=== PATIENT | male | born 1955 | race Caucasian/White ===

== ENCOUNTER 2017-03-14 14:14 | Emergency (ER) | payer BC ==
[2017-03-14] MEDS ORDERED: diphenhydrAMINE 50 MG/ML 1 ML VIAL IM STA (14:59)
[2017-03-14] MEDS ORDERED: methylPREDNISolone SOD SUCCI 125 MG/2 ML VIAL IM ONE (14:59)
[2017-03-14] MEDS ORDERED: FAMOTIDINE 20 MG TAB PO STA (15:00)
--- NOTE | 2017-03-14 15:01 | ED ---
Skin/Abscess/FB HPI - General Chief complaint: Skin/Abscess/Foreign Body Stated complaint: insect bites/bee sting Time Seen by Provider: 03/14/17 14:31 Source: patient, family, RN notes reviewed, old records reviewed Mode of arrival: ambulatory Limitations: no limitations - History of Present Illness Initial comments: Is a pleasant 61-year-old male presenting to the emergency Department chief complaint of left eye swelling and pain. Patient reports she was stung on his left eyebrow approximately 1 hour prior to arrival. He did take 50 mg Benadryl Benadryl at that time. Patient states that he has no eye pain. No pain with extra ocular eye movements. Patient states that he has no previous history of ALLERGIC reactions to bees. Patient denies any recent fever, chills, shortness of breath, chest pain, back pain, abdominal pain, nausea vomiting, numbness or tingling, dysuria or hematuria, constipation or diarrhea, headaches or visual changes, or any other current symptoms - Related Data Previous Rx's Medication Instructions Recorded Famotidine [Pepcid] 20 mg PO BID #8 tablet 03/14/17 diphenhydrAMINE [Benadryl] 25 mg PO QID PRN #20 capsule 03/14/17 predniSONE 50 mg PO DAILY #4 tablet 03/14/17 Allergies Allergy/AdvReac Type Severity Reaction Status Date / Time No Known Allergies Allergy Verified 03/14/17 15:13 Review of Systems ROS Statement: Those systems with pertinent positive or pertinent negative responses have been documented in the HPI. ROS Other: All systems not noted in ROS Statement are negative. Past Medical History Past Medical History: Hypertension History of Any Multi-Drug Resistant Organisms: None Reported Past Surgical History: Tonsillectomy Past Psychological History: No Psychological Hx Reported Smoking Status: Never smoker Past Alcohol Use History: None Reported Past Drug Use History: None Reported General Exam - General Exam Comments Initial Comments: Well-appearing 7-year-old male. No acute distress. Limitations: no limitations General appearance: alert, in no apparent distress Head exam: Present: atraumatic, normocephalic, normal inspection Eye exam: Present: PERRL, EOMI. Absent: normal appearance (left eye upper lid swelling. No stinger evidence in eyebrow. ), scleral icterus, conjunctival injection, periorbital swelling ENT exam: Present: normal exam, mucous membranes moist Neck exam: Present: normal inspection. Absent: tenderness, meningismus, lymphadenopathy Respiratory exam: Present: normal lung sounds bilaterally. Absent: respiratory distress, wheezes, rales, rhonchi, stridor Cardiovascular Exam: Present: regular rate, normal rhythm, normal heart sounds. Absent: systolic murmur, diastolic murmur, rubs, gallop, clicks GI/Abdominal exam: Present: soft, normal bowel sounds. Absent: distended, tenderness, guarding, rebound, rigid Extremities exam: Present: normal inspection, full ROM, normal capillary refill. Absent: tenderness, pedal edema, joint swelling, calf tenderness Back exam: Present: normal inspection Neurological exam: Present: alert, oriented X3, CN II-XII intact Psychiatric exam: Present: normal affect, normal mood Skin exam: Present: warm, dry, intact, normal color. Absent: rash Course Vital Signs 03/14/17 14:28 Temperature 98.7 F Pulse Rate 111 H Respiratory 20 Rate Blood Pressure 166/90 O2 Sat by Pulse 97 Oximetry Medical Decision Making - Medical Decision Making This is a 61 year old male with CC of left eyelid swelling after being stung by a bee 2 hours ago on left eyebrow. Patient assessment and edema over the left eyebrow and eyelid. Patient is given an ice pack. Patient be given IM slightly medical, Benadryl. Discussed leads apply ice over it is much as possible. Discussed that he can take the steroids for the next few days as well as Benadryl every 4-6 hours. Discussed returning for any worsening signs or symptoms. Patient agrees to treatment plan will comply. Return parameters were discussed. Disposition Clinical Impression: Bee sting, Eye swelling, left Disposition: HOME SELF-CARE Condition: Good Instructions: Insect Bite or Sting (ED) Additional Instructions: Patient advised to follow-up with primary care provider. Apply ice over the eye is much as possible. Take the steroids for the next few days as directed as well as continue to take Benadryl every 4-6 hours. Return to emergency department if any alarming signs or symptoms occur. Prescriptions: diphenhydrAMINE [Benadryl] 25 mg PO QID PRN #20 capsule PRN Reason: Itching Famotidine [Pepcid] 20 mg PO BID #8 tablet predniSONE 50 mg PO DAILY #4 tablet Referrals: Stephen Perez MD [Primary Care Provider] - 1-2 days Time of Disposition: 15:01
[2017-03-14 15:24] VITALS: BP 137/92; PULSE 96; RESP 18; TEMP 97.9
== END 2017-03-14 15:24 | disposition home or self-care (01) ==
LOC: EC 14:14
DX: T63.441A Toxic effect of venom of bees, accidental (unintentional), initial encounter (principal)
CPT/HCPCS: 99283; 96372 ×2; J1200; J2930

== ENCOUNTER → 2023-01-16 | Outpatient (CLI) | payer MEDICARE ==
--- NOTE | 2023-01-16 15:22 | P.SLEEP ---
History of Present Illness DATE: 01/16/2023 CONSULTATION/NEW PATIENT EVALUATION HISTORY OF PRESENT ILLNESS/SLEEP-WAKE EVALUATION: 67-year-old gentleman had been evaluated in the sleep center for possible obstructive sleep apnea hypopnea syndrome. SLEEP SCHEDULE: Usually sleep schedule from 11 PM to 8 AM 7 days a week. FALLING ASLEEP: Usually no problems with falling asleep, no TV in bedroom. DURING SLEEP: Patient sleeps on the back and side position. According to his he snores and has witnessed episodes of stop breathing during the sleep. Patient has multiple awakenings from sleep up to 4 times with nocturia. No history of hypnogogical hallucinations, sleep paralysis, or cataplexy. DURING THE DAY/WAKE STATE: In the morning patient wake up tired, has difficulties to pay attention, falling asleep during the day. Patient has problems with memory and concentration. [place] sleepiness scale is 14, which indicates sleepiness. Patient takes nap around 2 PM. PAST MEDICAL HISTORY: Hypertension, acid reflux. PAST SURGICAL HISTORY: Tonsillectomy in childhood. MEDICATIONS: Lisinopril, amlodipine, omeprazole, Tums supplies in, Flomax. SOCIAL HISTORY: Negative for smoking or using alcohol. FAMILY HISTORY: Heart problems. REVIEW OF SYSTEMS: Snoring, multiple awakenings from sleep, sleepiness during the day. No fevers. No double vision. No recent chest pain. No shortness of breath. No abdominal pain. No bleeding episodes. No blood in urine. No seizure episodes. PHYSICAL EXAMINATION: GENERAL: A pleasant patient without any distress. VITAL SIGNS: BP 148/82 , HR 94 , RR 16 , weight 253.2 pounds, height 5 foot 8.5 inches, body mass index 37.9 . HEENT: PERRLA, EOMI. Evaluation of oropharynx showed tongue protrudes midline, low position of soft palate Mallampati 4. NECK: Supple. No JVD. Thyroid is not palpable. 18 inches in circumference. LUNGS: Clear to percussion and to auscultation. Good air exchange. No wheezing or rhonchi. HEART: S1, S2 regular. No murmurs, gallops or rubs. ABDOMEN: Soft and nontender. Bowel sounds are present. No organomegaly appreciated. EXTREMITIES: No clubbing or cyanosis. OBSTETRICS NURSE: Awake, alert, and oriented x3. Cranial nerves 2 to 7 intact. There is no fasciculation or atrophy noted. No focal deficits observed. ASSESSMENT: 1. Snoring, witnessed episodes of stop breathing, extremely low position of soft palate, wide neck 18 inches in circumference, sleepiness [place] Sleepiness Scale is 14. Obstructive sleep apnea hypopnea syndrome. 2. Obesity, BMI 37.9. 3. Hypertension. 4. Acid reflux. 5 status post tonsillectomy. PLAN: 1. Polysomnography for evaluation of patient's breathing during sleep. 2. CPAP/BiPAP titration if sleep study confirms obstructive sleep apnea- hypopnea syndrome. 3. Preferable position during sleep on the side. 4. No driving if patient feels any sleepiness. Patient is aware of civil and criminal liability for unsafe driving. 5. Sleep hygiene with regular sleep time for at least 7.5-8 hours. 6. Watching and losing weight. Thank you very much for referring this patient for consultation. Sincerely, Scott Tello MD, PhD, FAASM. Diplomat of [place] [employer], Sleep Medicine Board by [place] [employer] [place] [employer] [facility] [place] Past Medical History Past Medical History: Hypertension History of Any Multi-Drug Resistant Organisms: None Reported Past Surgical History: Tonsillectomy Past Psychological History: No Psychological Hx Reported Past Alcohol Use History: None Reported Past Drug Use History: None Reported Medications and Allergies Home Medications Medication Instructions Recorded Confirmed Type Famotidine [Pepcid] 20 mg PO BID #8 tablet 03/14/17 Rx diphenhydrAMINE [Benadryl] 25 mg PO QID PRN #20 capsule 03/14/17 Rx predniSONE 50 mg PO DAILY #4 tablet 03/14/17 Rx Allergies Allergy/AdvReac Type Severity Reaction Status Date / Time No Known Allergies Allergy Verified 03/14/17 15:13 Sleep Note - Sleep Note Sleep Note: Temperature: Pulse Rate: Respiratory Rate: Blood Pressure: SpO2: Height: Weight: BMI: Neck Circumference:
== END ==
LOC: 3 N SLEEP 14:25
PROVIDERS: ATTEND Internal Medicine
DX: G47.33 Obstructive sleep apnea (adult) (pediatric) (principal); I10 Essential (primary) hypertension; K21.9 Gastro-esophageal reflux disease without esophagitis; E66.9 Obesity, unspecified; Z68.37 Body mass index [BMI] 37.0-37.9, adult; Z98.890 Other specified postprocedural states; Z99.89 Dependence on other enabling machines and devices
CPT/HCPCS: 99202

== ENCOUNTER → 2023-06-23 | Outpatient (CLI) | payer MEDICARE ==
--- NOTE | 2023-06-23 14:26 | P.PN ---
Subjective DATE: 06/23/2023 FOLLOW UP VISIT. Patient with obstructive sleep apnea hypopnea syndrome return to sleep center for follow-up visit. Recently patient had sleep study which documented obstructive sleep apnea hypopnea syndrome. Patient was initiated on PAP therapy and today is first visit after treatment was started. Patient was able to use PAP equipment every night for the whole night. The patient does not have significant problems with the mask, PAP pressure and humidification. [place] sleepiness scale is 10. I checked information from PAP unit. PAP unit pressure maximal inspiratory pressure 21, minimal expiratory pressure 10, pressure-support 4, average pressure 19.1 /15.1 cm H2O. Usage is 100 % for more then 4 hours, average 8.3 hours per night. Leak is 27.8 l/m, which is in acceptable range. Apnea Hypopnea Index is 8.3, which is slightly above 5 apnea-hypopnea index during diagnostic sleep test 55.9. . MEDICATIONS:1 Lisinopril 2. Amlodipine 3 Omeprazole 4. Flomax During physical exam: GENERAL: A pleasant patient without any distress. VITAL SIGNS: BP 132/64, HR 89, RR 12 , weight 253, temperature 98.2, oxygen saturation at room air 98% . HEENT: PERRLA, EOMI.low position of soft palate, Mallapati 4 . NECK: Supple. No JVD. LUNGS: Clear to percussion and to auscultation. Good air exchange. No wheezing or rhonchi. HEART: S1, S2 regular. ABDOMEN: Soft and nontender. Slightly obese EXTREMITIES: No clubbing or cyanosis. PATTERN LAYOUT WORKER: Awake, alert, and oriented x3. No focal deficit. Impressions: 1. Obstructive sleep apnea-hypopnea syndrome In severe range with extremely severe on seen dissertation . Patient demonstrated great compliance with treatment, benefiting from treatment. 2. Obesity. 3. Hypertension. 4. Acid reflux 5. Status post tonsillectomy. Plan: 1. Continue using PAP equipment every night for the whole night. 2. To change air filter at least 1-2 times per month. 3. PAP unit should stay lower then position of the head. 4. Advised patient to remove all remaining water from humidifier canister daily and make it dry after each usage. Refill canister with fresh distilled water before each usage. 5. Sleep hygiene with regular time in bed for at least 8 hours. 6. Precautions related to driving. No driving if feel any sleepiness. 7. I will maintain prescription for PAP supplies including mask, tube, filters. 8. Follow up visit in 4 months or earlier if patient has any problems. 9. Watching and losing weight. Thank you very much for allowing me to participate in the management of your patient. Scott Tello MD, PhD, FAASM. Diplomat of [place] [employer], Sleep Medicine Board by [place] [employer] [facility] [place]
== END ==
LOC: 3 N SLEEP 13:07
PROVIDERS: ATTEND Internal Medicine
DX: G47.33 Obstructive sleep apnea (adult) (pediatric) (principal); E66.9 Obesity, unspecified; I10 Essential (primary) hypertension; K21.9 Gastro-esophageal reflux disease without esophagitis; Z99.89 Dependence on other enabling machines and devices; Z90.49 Acquired absence of other specified parts of digestive tract
CPT/HCPCS: 99212

== ENCOUNTER → 2023-10-29 | Outpatient (CLI) | payer MEDICARE ==
[2023-10-29 13:56] VITALS: BP 122/52; PULSE 78; RESP 16; TEMP 98
--- NOTE | 2023-10-29 14:06 | P.PN ---
Subjective DATE: 10/29/2023 FOLLOW UP VISIT. Patient with obstructive sleep apnea hypopnea syndrome return to sleep center for follow-up visit. Information from previous visit have been reviewed. Patient is using PAP equipment every night for the whole night, getting PAP supplies in time. The patient does not have significant problems with the mask, PAP unit and humidification. [place] sleepiness scale is 9, which is in normal range. I checked information from PAP unit. PAP unit pressure maximal inspiratory pressure 21, minimal expiratory pressure 10, pressure support 4, average pressure 17.2/13.2, maximum pressure 18.5 or 14.5 cm H2O. Usage is 100% for more then 4 hours, average 7.5 hours per night. Leak is 18.1 l/m, which is in acceptable range. Apnea Hypopnea Index is 1.7, which is normal. MEDICATIONS:1. Lisinopril 20 mg once a day 2. Tamsulosin 0.4 mg once a day 3. Omeprazole 20 mg once a day 4. Celecoxib 200 mg once a day During physical exam: GENERAL: A pleasant patient without any distress. VITAL SIGNS: Please see below, weight 261.8 pounds. HEENT: PERRLA, EOMI.low position of soft palate, Mallapati 4 . NECK: Supple. No JVD. LUNGS: Clear to percussion and to auscultation. Good air exchange. No wheezing or rhonchi. HEART: S1, S2 regular. ABDOMEN: Soft and nontender.[] EXTREMITIES: No clubbing or cyanosis. CAR DETAILER: Awake, alert, and oriented x3. No focal deficit. Impressions: 1. Obstructive sleep apnea-hypopnea syndrome. Patient demonstrated great compliance with treatment, benefiting from treatment. 2. Hypertension. 3. Obesity, patient increased weight on 8 pounds complaining with previous visit. 4. Acid reflux. 5. Status post tonsillectomy. Plan: 1. Continue using PAP equipment every night for the whole night. 2. To change air filter at least 1-2 times per month. 3. PAP unit should stay lower then position of the head. 4. Advised patient to remove all remaining water from humidifier canister daily and make it dry after each usage. Refill canister with fresh distilled water before each usage. 5. Sleep hygiene with regular time in bed for at least 8 hours. 6. Precautions related to driving. No driving if feel any sleepiness. 7. I will maintain prescription for PAP supplies including mask, tube, filters. 8. Watching and losing weight. 9. Follow up visit in 6 months or earlier if patient has any problems. Thank you very much for allowing me to participate in the management of your patient. Scott Tello MD, PhD, FAASM. Diplomat of [place] [employer], Sleep Medicine Board by [place] [employer] Sales Consultant of [facility] [place] Objective - Vital Signs Vital signs: Vital Signs Temp 98.0 F 10/29/23 13:22 Pulse 78 10/29/23 13:22 Resp 16 10/29/23 13:22 BP 122/52 10/29/23 13:22 Pulse Ox 97 10/29/23 13:22 FiO2
== END ==
LOC: 3 N SLEEP 13:10
PROVIDERS: ATTEND Internal Medicine
DX: G47.33 Obstructive sleep apnea (adult) (pediatric) (principal); I10 Essential (primary) hypertension; E66.9 Obesity, unspecified; K21.9 Gastro-esophageal reflux disease without esophagitis; Z99.89 Dependence on other enabling machines and devices; Z90.89 Acquired absence of other organs; Z79.899 Other long term (current) drug therapy
CPT/HCPCS: 99212

== ENCOUNTER → 2024-04-02 | Outpatient (CLI) | payer MEDICARE ==
[2024-04-02 15:29] LABS: HGB 13.9 g/dL (13.0-17.0); MCH 29.4 pg (27.0-32.0); MCHC 33.1 g/dL (32.0-37.0); Mean Platelet Volume 9.3 FL (9.5-12.2); NRBC Per 100 WBC 0 X 10*3/uL (0.00-0.01); Platelet Count 238 X 10*3/uL (140-440); RBC 4.72 X 10*6/uL (4.40-5.60); RDW 14.4 % (11.5-14.5); WBC 10.44 X 10*3/uL (4.50-10.00)
[2024-04-02 16:10] LABS: ALT 18 U/L (10-49); AST 19 U/L (14-35); Albumin 4.3 g/dL (3.8-4.9); Albumin/Globulin Ratio 1.65 Ratio (1.60-3.17); Alkaline Phosphatase 73 U/L (41-126); BUN/Creat Ratio 17.64 Ratio (12.00-20.00); Blood Urea Nitrogen 19.4 mg/dL (9.0-27.0); Calcium 9.4 mg/dL (8.7-10.3); Carbon Dioxide 25.2 mmol/L (21.6-31.8); Chloride 104 mmol/L (96-109); Chol/HDL Ratio 5.84 Ratio; Globulin 2.6 g/dL (1.6-3.3); Glucose 113 mg/dL (70-110); LDL Cholesterol,Calculated 160.1 mg/dL (0.0-131.0); Potassium 4.6 mmol/L (3.5-5.5); Prostate Specific Antigen 3.01 ng/mL (0.000-4.500); Sodium 141 mmol/L (135-145); Total Bilirubin 0.6 mg/dL (0.3-1.2); Total Protein 6.9 g/dL (6.2-8.2)
== END | disposition home or self-care (01) ==
LOC: LABWHC1 09:34
PROVIDERS: ATTEND Family Medicine
DX: Z00.01 Encounter for general adult medical examination with abnormal findings
CPT/HCPCS: 36415; 80053; 80061; 84153; 85027

== ENCOUNTER → 2024-05-07 | Outpatient (CLI) | payer MEDICARE ==
--- NOTE | 2024-05-07 10:42 | MR ---
EXAMINATION TYPE: MR shoulder LT wo con DATE OF EXAM: 05/07/2024 COMPARISON: None HISTORY: LT shoulder pain, fall TECHNIQUE: Multiplanar, multisequence imaging of the left shoulder is performed without contrast. FINDINGS: There is no bone contusion or fracture. There is marked osteophytic change of the AC joint and there is a subacromial spur resulting in mild shoulder impingement. There is mild degenerative change of the glenohumeral joint and there is a small glenohumeral joint e ffusion. There is a full-thickness tear with mild retraction medially of the supraspinatus tendon. The tear is approximately 2 cm proximal to its attachment on the greater tuberosity. Infraspinatus and subscapul marquita tendons are intact. The biceps tendon is normal in position within the bicipital groove. There is fluid in the tendon she ath and an diffuse abnormal signal intensity in the proximal long head of the biceps tendon consisten t with partial biceps tendon tear.. The biceps anchor and superior cartilaginous labrum appears intac t. IMPRESSION: 1. Full-thickness tear with mild retraction of the supraspinatus tendon. 2. 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 3. Strain or partial tear of the proximal biceps tendon. 4. Mild degeneration of the glenohumeral joint and small glenohumeral joint effusion. [facility], Workstation: [id number] 05/07/2024 10:40 AM
== END | disposition home or self-care (01) ==
LOC: RADMRIMAIN 07:09
PROVIDERS: ATTEND Orthopaedic Surgery
DX: S46.812D Strain of other muscles, fascia and tendons at shoulder and upper arm level, left arm, subsequent encounter (principal); M19.012 Primary osteoarthritis, left shoulder; S46.012D Strain of muscle(s) and tendon(s) of the rotator cuff of left shoulder, subsequent encounter

== ENCOUNTER → 2024-05-31 | Outpatient (CLI) | payer MEDICARE ==
[2024-05-31 11:29] LABS: INR 0.9 (<1.2); Partial Thromboplastin Time 28.6 sec (22.0-30.0); Prothrombin Time 10.5 sec (10.0-12.5)
[2024-05-31 16:11] LABS: Basophils # (A) 0.06 X 10*3/uL (0.00-0.10); Basophils % (A) 0.7 %; Eosinophils # (A) 0.14 X 10*3/uL (0.04-0.35); Eosinophils % (A) 1.6 %; HCT 39.6 % (39.6-50.0); HGB 13.4 g/dL (13.0-17.0); Lymphocytes # (A) 2.91 X 10*3/uL (0.90-5.00); Lymphocytes % (A) 32.8 %; MCH 29.1 pg (27.0-32.0); MCHC 33.8 g/dL (32.0-37.0); MCV 86.1 FL (80.0-97.0); Mean Platelet Volume 9.2 FL (9.5-12.2); Monocytes # (A) 0.55 X 10*3/uL (0.20-1.00); Monocytes % (A) 6.2 %; NRBC Per 100 WBC 0 X 10*3/uL (0.00-0.01); Neutrophils # (A) 5.19 X 10*3/uL (1.80-7.70); Neutrophils % (A) 58.5 %; Platelet Count 261 X 10*3/uL (140-440); RDW 13.1 % (11.5-14.5); WBC 8.87 X 10*3/uL (4.50-10.00)
[2024-05-31 16:23] LABS: ALT 16 U/L (10-49); AST 19 U/L (14-35); Albumin 4.4 g/dL (3.8-4.9); Albumin/Globulin Ratio 1.76 Ratio (1.60-3.17); Alkaline Phosphatase 77 U/L (41-126); Blood Urea Nitrogen 12.4 mg/dL (9.0-27.0); Calcium 9.3 mg/dL (8.7-10.3); Carbon Dioxide 25.3 mmol/L (21.6-31.8); Chloride 102 mmol/L (96-109); Globulin 2.5 g/dL (1.6-3.3); Glucose 109 mg/dL (70-110); Potassium 4.3 mmol/L (3.5-5.5); Sodium 138 mmol/L (135-145); Total Bilirubin 0.4 mg/dL (0.3-1.2); Total Protein 6.9 g/dL (6.2-8.2)
== END | disposition home or self-care (01) ==
LOC: LABWHC1 10:08
PROVIDERS: ATTEND Family Medicine
DX: Z01.812 Encounter for preprocedural laboratory examination (principal)
CPT/HCPCS: 36415; 80053; 85025; 85610; 85730